=== PATIENT | female | born 1975 | race American Indian/Alaskan Native ===

== ENCOUNTER 2018-03-09 01:35 | Emergency (ER) | payer MEDICARE ==
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
[2018-03-09] MEDS ORDERED: Benzoin Compound Tincture (60 ml) ONE (02:22)
[2018-03-09 03:21] LABS: BASO % 0.2 % (0.0-2.0); EOS % 0.1 % (0.0-4.0); HEMOGLOBIN 12.3 g/dL (11.0-16.0); LYMPH # 1.3 K/uL (1.0-4.3); LYMPH % 9.7 % (20.0-40.0); MEAN CELL VOLUME 94.2 fL (81.0-99.0); MEAN CORPUSCULAR HEMOGLOBIN 31.1 pg (27.0-31.0); MONO # 0.8 K/uL (0.0-0.8); MONO % 5.9 % (0.0-10.0); NEUT # 11.6 K/uL (1.8-7.0); NEUT % 84.1 % (50.0-75.0); PLATELET COUNT 344 K/uL (130-400); RBC 3.94 Mil/uL (3.80-5.20); RED CELL DISTRIBUTION WIDTH 13.1 % (11.5-14.5); WHITE BLOOD COUNT 13.8 K/uL (4.8-10.8)
[2018-03-09 03:29] LABS: ALB/GLOB RATIO 1.4 (1.0-2.1); ALBUMIN 4.1 g/dL (3.5-5.0); ALT/SGPT 40 U/L (9-52); AST/SGOT 196 U/L (14-36); BLOOD UREA NITROGEN 12 mg/dL (7-17); CALCIUM 8.5 mg/dl (8.6-10.4); GFR NON-AFRICAN AMERICAN > 60
[2018-03-09 03:35] LABS: HCG,QUALITATIVE URINE NEGATIVE (NEGATIVE)
[2018-03-09 03:37] LABS: URINE BILIRUBIN NEGATIVE (NEGATIVE); URINE CLARITY Clear (Clear); URINE COLOR Yellow (YELLOW); URINE GLUCOSE (UA) NORMAL (Normal); URINE LEUKOCYTE ESTERASE NEG Leu/uL (Negative); URINE PROTEIN NEGATIVE (NEGATIVE); URINE UROBILINOGEN NORMAL mg/dL (0.2-1.0)
[2018-03-09 03:43] LABS: URINE BLOOD TRACE (NEGATIVE)
[2018-03-09 03:46] LABS: BARBITURATES, UR NEGATIVE (NEGATIVE); BENZODIAZEPINES, UR NEGATIVE (NEGATIVE); OPIATES, UR NEGATIVE (NEGATIVE); PHENCYCLIDINE, UR NEGATIVE (NEGATIVE)
[2018-03-09 04:53] LABS: LYMPHOCYTE 5 % (20-40); MONOCYTE 9 % (0-10); NEUTROPHIL 86 % (50-75); TOTAL CELLS COUNTED 100
[2018-03-09 04:54] LABS: PLATELET ESTIMATE NORMAL (NORMAL)
--- NOTE | 2018-03-09 09:58 | RAD ---
Date of service: 03/09/2018 PROCEDURE: CHEST RADIOGRAPH, 1 VIEW HISTORY: psych clearance COMPARISON: None available. FINDINGS: LUNGS: Examination limited due to body habitus and poor inspiratory effort. No infiltrate. PLEURA: No pneumothorax or pleural fluid seen. CARDIOVASCULAR: Normal. OSSEOUS STRUCTURES: No significant abnormalities. VISUALIZED UPPER ABDOMEN: Normal. OTHER FINDINGS: None. IMPRESSION: No active disease.
[2018-03-09 19:13] VITALS: O2SAT 98
--- NOTE | 2018-03-09 19:37 | CARD ---
APPROVED REPORT Date of service: 03/09/2018 EKG Measurement Heart [id number] ID [id number] <Conclusion> Normal sinus rhythm Normal ECG
[2018-03-09 21:45] VITALS: RESP 20
[2018-03-09 22:46] VITALS: BP 131/72; PULSE 76; TEMP 98.1
== END 2018-03-09 23:01 | disposition short-term general hospital (02) ==
LOC: C.ER 01:35
DX: F20.9 Schizophrenia, unspecified (principal)
CPT/HCPCS: 71045; 80053; 81001; 82948; 83735; 84100; 84703; 85025; 93005; 96372; 99285; G0480; J1630; J2060; J3486

== ENCOUNTER 2018-03-27 23:43 | Emergency (ER) | payer MEDICARE ==
[2018-03-28 00:06] VITALS: BP 110/78; PULSE 73; RESP 18; TEMP 98; O2SAT 100
[2018-03-28 00:16] LABS: SQUAMOUS EPITHIAL < 1 /hpf (0-5); URINE BACTERIA RARE (<OCC); URINE BILIRUBIN NEGATIVE (NEGATIVE); URINE BLOOD 1+ (NEGATIVE); URINE CLARITY Clear (Clear); URINE COLOR Straw (YELLOW); URINE GLUCOSE (UA) NORMAL (Normal); URINE LEUKOCYTE ESTERASE NEG Leu/uL (Negative); URINE PROTEIN NEGATIVE (NEGATIVE); URINE UROBILINOGEN NORMAL mg/dL (0.2-1.0)
[2018-03-28 00:19] LABS: HCG,QUALITATIVE URINE NEGATIVE (NEGATIVE)
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
[2018-03-28 01:16] LABS: BARBITURATES, UR NEGATIVE (NEGATIVE); BENZODIAZEPINES, UR NEGATIVE (NEGATIVE); OPIATES, UR NEGATIVE (NEGATIVE); PHENCYCLIDINE, UR NEGATIVE (NEGATIVE)
[2018-03-28] MEDS ORDERED: cefTRIAXone (Rocephin) 250 mg Inj IM STA (03:26)
== END 2018-03-28 03:57 | disposition home or self-care (01) ==
LOC: C.ER 23:43
DX: T76.21XA Adult sexual abuse, suspected, initial encounter (principal); I10 Essential (primary) hypertension; F20.9 Schizophrenia, unspecified; F31.9 Bipolar disorder, unspecified
CPT/HCPCS: 81001; 84703; 96372; 99285; G0480; J0696